=== PATIENT | male | born 1960 | race Caucasian/White ===

== ENCOUNTER 2017-01-19 17:36 | Inpatient (IN) | payer BC, OTHER ==
[~2017-01-19] VITALS: Ht 180.3 cm; Wt 78.5 kg
[2017-01-19] MEDS ORDERED: SODIUM CHLORIDE 0.9% 1000ML 1,000 ML IV STA ×2 (17:47→18:31)
[2017-01-19] MEDS ORDERED: ADENOSINE IV SOLN 3 MG/ML 2 ML VIAL ONE (17:48)
[2017-01-19] MEDS ORDERED: RAPID SEQUENCE INDUCTION BAG ONE (18:02)
--- NOTE | 2017-01-19 18:02 | EMERGENCY ROOM VISIT NOTE ---
History Report prepared by Malinda: Tonie Lancaster Under the Supervision of: Dr. Nishant Estvees D.O. First contact with patient: 17:47 Chief Complaint: CHEST PAIN Stated Complaint: CHEST PAIN History of Present Illness The patient is a 56 year old male who presents to the Emergency Room with complaints of constant shoulder pain and pressure beginning 45 minutes ago. The patient states that his pain started when he got out of the shower today. He reports that he feels well other than his shoulder pain and denies any nausea and chest pain. The patient also denies any recent illness, diarrhea, and dehydration. He reports a history of chewing tobacco and melanoma. The patients reports that he had a significant amount of alcohol last night. Source of History: patient Onset: 45 minutes ago Position: shoulder (bilateral) Quality: pressure Timing: constant Associated Symptoms: No chest pain, No nausea, No diarrhea Note: Pt denies recent illness. Review of Systems See HPI for pertinent positives & negatives. A total of 10 systems reviewed and were otherwise negative. Past Medical & Surgical Medical Problems: (1) Chest pain (2) Coronary atherosclerosis due to calcified coronary lesion (3) Elevated troponin (4) Lyme disease (5) Mitral valve disorder (6) Narrow complex tachycardia Family History No significant family history Social History Smoking Status: Never Smoker Drug Use: none Marital Status: Housing Status: lives with family Occupation Status: employed Current/Historical Medications No Active Prescriptions or Reported Meds Allergies Coded Allergies: No Known Allergies (Verified , 01/19/17) Physical Exam Vital Signs Date Time Temp Pulse Resp B/P (MAP) Pulse Ox O2 Delivery O2 Flow Rate FiO2 01/19/17 22:09 81 16 96 01/19/17 22:00 121/77 01/19/17 21:54 76 19 96 01/19/17 21:39 68 19 97 01/19/17 21:30 139/97 01/19/17 21:24 91 19 95 01/19/17 21:09 86 22 95 01/19/17 21:04 86 23 95 01/19/17 21:00 130/88 01/19/17 20:49 91 24 94 01/19/17 20:44 142/95 01/19/17 20:30 139/89 01/19/17 20:15 133/91 01/19/17 20:05 94 15/ 98 01/19/17 20:00 128/91 9/12/17 19:52 95 99 01/19/17 19:45 135/95 01/19/17 19:37 102 17 99 01/19/17 19:32 105 99 01/19/17 19:17 99 99 01/19/17 19:15 138/96 01/19/17 19:02 101 100 01/19/17 19:00 141/98 01/19/17 18:50 100 Nasal Cannula 3.0 01/19/17 18:47 100 100 01/19/17 18:46 101 100 Nasal Cannula 3.0 01/19/17 18:45 142/97 01/19/17 18:41 101 100 Nasal Cannula 3.0 01/19/17 18:40 136/91 01/19/17 18:36 105 99 Nasal Cannula 3.0 01/19/17 18:35 142/100 01/19/17 18:31 107 100 Nasal Cannula 3.0 01/19/17 18:30 156/96 01/19/17 18:26 110 99 Non-Rebreather 15.0 01/19/17 18:25 138/93 01/19/17 18:21 113 100 Non-Rebreather 15.0 01/19/17 18:20 146/100 01/19/17 18:16 122 88 Nasal Cannula 6.0 01/19/17 18:15 151/95 144/93 01/19/17 18:14 126/102 01/19/17 18:13 115 01/19/17 18:11 240 01/19/17 18:06 239 99 Nasal Cannula 6.0 01/19/17 18:01 242 99 Nasal Cannula 6.0 01/19/17 17:56 240 100 Nasal Cannula 6.0 01/19/17 17:54 109/63 01/19/17 17:51 241 01/19/17 17:51 229 98 Nasal Cannula 6.0 01/19/17 17:49 103/81 01/19/17 17:40 100 Nasal Cannula 6.0 01/19/17 17:40 100 Nasal Cannula 6.0 01/19/17 17:38 36.5 243 16 102/55 97 Physical Exam GENERAL: Patient is awake, alert, and very anxious appearing EYES: The conjunctivae are clear. The pupils are round and reactive. EARS, NOSE, MOUTH AND THROAT: The nose is without any evidence of any deformity. Mucous membranes are moist tongue is midline NECK: The neck is nontender and supple. RESPIRATORY: Normal respiratory effort is noted there is no evidence of wheezing rhonchi or rales CARDIOVASCULAR: Tachycardic rate and regular rhythm noted there no murmurs GASTROINTESTINAL: The abdomen is soft. Bowel sounds are present in all quadrants. Abdomen is nontender MUSCULOSKELETAL/EXTREMITIES: There is no evidence of gross deformity full range of motion is noted in the hips and shoulders SKIN: There is no obvious evidence of any rash. There are no petechiae, pallor or cyanosis noted. Skin was cool and diaphoretic, no pedal edema noted NEUROLOGIC: Patient is awake alert and oriented x3 Medical Decision & Procedures ER Provider Diagnostic Interpretation: X-ray results as stated below per interpretation by me and the radiologist. CHEST ONE VIEW PORTABLE FINDINGS: Lung volumes are normal. Mild left basilar opacity is suggestive of atelectasis. No pneumothorax or pleural effusion is present. Cardiomediastinal silhouette is unremarkable. IMPRESSION: No acute cardiopulmonary findings. Electronically signed by: Warren Saldana M.D. 01/19/2017 7:01 PM Dictated Date/Time: 01/19/2017 6:55 PM Laboratory Results Test 01/19/17 18:35 01/19/17 19:33 01/19/17 20:40 Prothrombin Time 10.9 SECONDS (9.0-12.0) Prothromb Time International Ratio 1.0 (0.9-1.1) Activated Partial Thromboplast Time 23.5 SECONDS (21.0-31.0) Partial Thromboplastin Ratio 0.9 Thyroid Stimulating Hormone (TSH) 2.720 uIu/ml (0.300-4.500) Free Thyroxine 1.11 ng/dl (0.80-1.60) Chemistry Specimen Hemolysis Urine Color YELLOW Urine Appearance CLEAR (CLEAR) Urine pH 5.0 (4.5-7.5) Urine Specific [place] 1.014 (1.000-1.030) Urine Protein NEG (NEG) Urine Glucose (UA) NEG (NEG) Urine Ketones 1+ (NEG) Urine Occult Blood NEG (NEG) Urine Nitrite NEG (NEG) Urine Bilirubin NEG (NEG) Urine Urobilinogen NEG (NEG) Urine Leukocyte Esterase NEG (NEG) Laboratory results per my review. Medications Administered Medications (Trade) Dose Ordered Sig/Jaelyn Route Start Time Stop Time Status Last Admin Dose Admin Sodium Chloride 1,000 ml @ 999 mls/hr Q1H1M STAT IV 01/19/17 17:47 01/19/17 18:47 DC 01/19/17 17:47 999 MLS/HR Adenosine (Adenosine IV) 36 mg STK-MED ONCE .ROUTE 01/19/17 17:48 01/19/17 17:49 DC 01/19/17 17:53 36 MG Miscellaneous (Rapid Sequence Induction Bag) 1 ea STK-MED ONCE N/A 01/19/17 18:02 01/19/17 18:03 DC 01/19/17 18:08 1 EA Thiamine HCl (Vitamin B-1 Inj) 100 mg NOW STAT IV 01/19/17 18:03 01/19/17 18:04 DC 01/19/17 18:55 100 MG Sodium Chloride 1,000 ml @ 250 mls/hr Q4H STAT IV 01/19/17 18:31 01/19/17 22:30 DC 01/19/17 18:31 250 MLS/HR Procedure Indication: Wide-Complex Tachycardia Written consent was obtained after the risks and benefits were explained, including but not limited to pain, thermal burn, allergic reaction, aspiration, airway obstruction, laryngospasm, infection, hypotension, and cardiorespiratory arrest. At this time, the risks of the procedure are less than the risks of NOT performing the procedure. A time out was taken and the correct patient and procedure identified. The patient was on 100% via NRB and end tidal CO2 monitoring prior to the procedure. Suction, airway equipment, medications, respiratory equipment, ACLS cart, and appropriate personnel were prepared prior to the initiation of the procedure. Sedation was achieved utilizing Etomidate 20mg. The biphasic defibrillator was set to 100 joules of energy and synched. After confirmation of sedation and "all clear" safety check the synchronized shock was delivered. This resulted in successful conversion of the dysrhythmia back into sinus rhythm. See nursing notes for dosages and times. There were no complications and the patient recovered uneventfully from the procedure. ECG Indication: chest pain Rate (beats per minute): 243 Rhythm: other (wide complex tachycardia) Findings: ST depression (widespread) Comparison ECG Date: 02/18/14 Change: Changes are new compared to previous. EKG 2: Sinus tachycardia, 120, persistence of inferior and lateral ST depressions noted. Changes new compared to 02/18/14. ED Course 1746: The patient was evaluated in room A1. A complete history and physical examination were performed. 1746: NSS 1,000 ml @ 999 mls/hr IV. 1747: Adenosine 36mg IV. 1802: Thiamine HCl 100mg IV. 1803: I discussed the patient's case with Dr. Arnold of Cardiology. The patient will be evaluated for further management. 1830: NSS 1,000 ml @ 250 mls/hr IV. 2033: I discussed the patient's case with Dr. De of [facility] The patient will be evaluated for further management. 2041: Upon reevaluation, the patient is doing well. I discussed results and treatment plan with the patient. He verbalizes agreement and understanding. I spoke with Dr. De of the [facility] The patient will be evaluated for further management and care. Medical Decision Differential diagnosis: Etiologies such as premature contractions, electrolyte abnormality, cardiac dysrhythmia, thyroid dysfunction, pulmonary embolism, infection, gastrointestinal, as well as others were entertained. Nursing notes reviewed. Additional history is obtained from the patient's significant other. The patient is a 56-year-old male who presented to the emergency department for an evaluation of chest pain and palpitations. The patient had an acute onset of fast heart rate prior to arrival. He was found to be in a regular tachycardia which appeared to be wide complex. There were also significant ST segment depressions noted and was unsure if this is rate related ischemia. The patient was having significant symptoms of discomfort across his shoulders as well as a low blood pressure. Initially we attempted to give the patient chemical cardioversion with Adenosine in case this rhythm represented an SVT with aberrancy conduction. This did not work and the patient continued to have worsening symptoms and the decision was made to give the patient a cardioversion. I discussed the risks and benefits of the cardioversion as well as the sedation. The patient was sedated in the usual fashion and he was cardioverted using 100 joules and synchronized cardioversion. The patient converted to sinus tachycardia then sinus rhythm. His ST segment abnormality slowly improved. He did not have any further discomfort and his initial troponin came back mildly elevated. I discussed the patient's case with the on- call [facility] sheet metal shop supervisor as well as the on-call [facility] hospitalist. They've agreed to evaluate the patient in the emergency department for further management and disposition. His condition continued to improve. He was treated with IV fluids as well. He was also given IV thiamine because he does have a history of alcohol use. Medication Reconcilliation Current Medication List: was personally reviewed by me Blood Pressure Screening Patient's blood pressure: Normal blood pressure Blood pressure disposition: Did not require urgent referral Consults Time Called: 1799 Consulting Physician: Dr. Arnold - Cardiology Returned Call: 1803 I discussed the patient's case with Dr. Arnold of Cardiology. The patient will be evaluated for further management. Additional Consults: Time Called: 2029 Consulted Physician: Dr. De - [facility] Returned Call: 2033 Additional Comments: I discussed the patient's case with Dr. De of [facility] The patient will be evaluated for further management. Impression Primary Impression: Wide-complex tachycardia Additional Impressions: Chest pain Elevated troponin Critical Care I have personally spent greater than 60 minutes of critical care time in the direct management of this patient. This includes bedside care, interpretation of diagnostic studies, and testing, discussion with consultants, patient, and family members, and other required patient management activities. This 60 minutes is in excess of all separately billable procedures. Scribe Attestation The scribe's documentation has been prepared under my direction and personally reviewed by me in its entirety. I confirm that the note above accurately reflects all work, treatment, procedures, and medical decision making performed by me. Departure Information Dispostion Being Evaluated By Hospitalist Prescriptions No Active Prescriptions or Reported Meds Referrals Bertha Zurita, RaymundoR.N.P (PCP) Patient Instructions My [facility] Health Problem Qualifiers Additional Impressions: Chest pain Chest pain type: unspecified Qualified Codes: R07.9 - Chest pain, unspecified
[2017-01-19] MEDS ORDERED: THIAMINE HCL 100 MG/ML 2 ML VIAL IV STA (18:03)
--- NOTE | 2017-01-19 19:02 | DIAGNOSTIC IMAGING REPORT ---
CHEST ONE VIEW PORTABLE CLINICAL HISTORY: Respiratory distress. Dyspnea. COMPARISON STUDY: Chest radiograph February 10, 2016. FINDINGS: Lung volumes are normal. Mild left basilar opacity is suggestive of atelectasis. No pneumothorax or pleural effusion is present. Cardiomediastinal silhouette is unremarkable. IMPRESSION: No acute cardiopulmonary findings. Electronically signed by: Warren Saldana M.D. 01/19/2017 7:01 PM Dictated Date/Time: 01/19/2017 6:55 PM
[2017-01-19 19:24] LABS: PARTIAL THROMBOPLASTIN RATIO 0.9; PROTHROMBIN TIME (PATIENT) 10.9 SECONDS (9.0-12.0)
[2017-01-19 19:46] LABS: BASO % 0.1 %; BASO ABS # 0.01 K/uL (0-0.2); COMPLETE YES; EOS % 0.6 %; HEMATOCRIT 44.2 % (42-52); IG% 0.3 %; LYMPH % 12.1 %; LYMPH ABS # 0.96 K/uL (1.2-3.4); MEAN CELL VOLUME 89.7 fL (80-100); MEAN CORPUSCULAR HGB CONC 35.7 g/dl (32-36); MEAN PLATELET VOLUME 9.7 fL (7.4-10.4); MONO % 7.3 %; NEUT % 79.6 %; PLATELET COUNT 220 K/uL (130-400); RED BLOOD COUNT 4.93 M/uL (4.7-6.1); WHITE BLOOD COUNT 7.93 K/uL (4.8-10.8)
[2017-01-19 20:14] LABS: BUN/CREATININE RATIO 12.5 (10-20); CALCIUM 9.3 mg/dl (8.5-10.1); CREATININE 1.2 mg/dl (0.60-1.40); MAGNESIUM 2.1 mg/dl (1.8-2.4)
[2017-01-19 20:34] LABS: ALB/GLOB RATIO 1.2 (0.9-2); THYROID STIMULATING HORMONE 2.72 uIu/ml (0.300-4.500)
[2017-01-19 20:58] LABS: URINE APPEARANCE CLEAR (CLEAR); URINE BILIRUBIN NEG (NEG); URINE COLOR YELLOW; URINE NITRITE NEG (NEG); URINE SPECIFIC GRAVITY 1.014 (1.000-1.030); UROBILINOGEN NEG (NEG)
[2017-01-19 21:03] LABS: MANUAL MICROSCOPIC REQUIRED? NO; REVIEW REQ? NO
--- NOTE | 2017-01-19 21:29 | History and Physical ---
History & Physical Date & Time of Service: Jan 19, 2017 at 21:20 Chief Complaint: Chest Pain Primary Care Physician: Bertha Zurita C.R.N.P History of Present Illness Source: patient, hospital records Mr Lewis is a 56 year old male who presented to the Emergency Room with complaints of presyncope, palpitations and neck/thorat/shoulder pain. The started while brushing his teeth after coming out of the shower. He has not experienced anything similar previously. Started of feeling light headed and dizzy, then started palpitations and throat was painful. This pain spread to his left shoulder first and then right shoulder and became increasingly painful up to 8-9/10 on arrival in the ER. Associated shortness of breath at rest. He denies any associated nausea or diaphoresis. The previous night he drank approximately 20 cans of beer as per his . In the ER he recevied 1L NSS bolus, then 1L NSS 250 MLS/HR, thiamine 100 mg IV. He was given 36mg IV adenosine which did not result in a rhythm change. He was then sedated and cardioverted with x1 shock 100J back into sinus rhythm. He currently denies any chest pain, shortness of breath, throat pain, shoulder pain , dizziness or palpitations. He denies any usual chest pain, orthopnea, PND, palpitations, claudication, syncope or presyncope outside of this episode. He takes snuff but never smokes. He had a stress echo in 2007 that showed no inducible ischemia. He does not take any regular medications and does not have routine medical care. Past Medical/Surgical History Medical Problems: No routine medical care Hx of mitral valve prolapse - although appears clear on stress echo in 2007 Past Surgery History: excision melanoma on back neck Family History No significant family history Social History Smoking Status: Never Smoker Smokeless Tobacco Use: Yes Alcohol Use: heavy (8-10 chet cans a few times/week) Drug Use: none Marital Status: Housing status: lives with family Occupational Status: retired Immunizations History of Influenza Vaccine: No History of Tetanus Vaccine?: Yes History of Pneumococcal: Yes Pneumococcal Date: Aug 14, 2007 History of Hepatitis B Vaccine: No Multi-Drug Resistant Organisms History of MDRO: No Allergies Coded Allergies: No Known Allergies (Verified , 01/19/17) Home Medications No Active Prescriptions or Reported Meds Review of Systems Constitutional: No fever, No chills Eyes: No worsening of vision ENT: No hearing loss Respiratory: No cough, No sputum, No wheezing, No shortness of breath, No dyspnea on exertion Cardiovascular: No chest pain, No orthopnea, No PND, No edema, No claudication , No palpitations Abdomen: No pain, No nausea, No vomiting, No diarrhea, No constipation, No GI bleeding Musculoskeletal: No joint pain, No muscle pain, No swelling, No calf pain Genitourinary - Male: No hematuria, No dysuria, No urinary frequency, No urinary urgency Neurologic: No memory loss, No weakness, No numbness/tingling, No vertigo, No balance problems Psychiatric: No depression symptoms Endocrine: No fatigue, No excessive thirst, No excessive urination Hematologic / Lymphatic: No abnormal bleeding/bruising, No clotting problems Integumentary: No rash, No itch Physical Exam Vital Signs Date Time Temp Pulse Resp B/P (MAP) Pulse Ox O2 Delivery O2 Flow Rate FiO2 01/19/17 21:04 86 23 95 01/19/17 21:00 130/88 01/19/17 20:49 91 24 94 01/19/17 20:44 142/95 01/19/17 20:30 139/89 01/19/17 20:15 133/91 01/19/17 20:05 94 15/ 98 01/19/17 20:00 128/91 01/19/17 19:52 95 99 01/19/17 19:45 135/95 01/19/17 19:37 102 17 99 01/19/17 19:32 105 99 01/19/17 19:17 99 99 01/19/17 19:15 138/96 01/19/17 19:02 101 100 01/19/17 19:00 141/98 01/19/17 18:50 100 Nasal Cannula 3.0 01/19/17 18:47 100 100 01/19/17 18:46 101 100 Nasal Cannula 3.0 01/19/17 18:45 142/97 01/19/17 18:41 101 100 Nasal Cannula 3.0 01/19/17 18:40 136/91 01/19/17 18:36 105 99 Nasal Cannula 3.0 01/19/17 18:35 142/100 01/19/17 18:31 107 100 Nasal Cannula 3.0 01/19/17 18:30 156/96 01/19/17 18:26 110 99 Non-Rebreather 15.0 01/19/17 18:25 138/93 01/19/17 18:21 113 100 Non-Rebreather 15.0 01/19/17 18:20 146/100 01/19/17 18:16 122 88 Nasal Cannula 6.0 01/19/17 18:15 151/95 144/93 01/19/17 18:14 126/102 01/19/17 18:13 115 01/19/17 18:11 240 01/19/17 18:06 239 99 Nasal Cannula 6.0 01/19/17 18:01 242 99 Nasal Cannula 6.0 01/19/17 17:56 240 100 Nasal Cannula 6.0 01/19/17 17:54 109/63 01/19/17 17:51 241 01/19/17 17:51 229 98 Nasal Cannula 6.0 01/19/17 17:49 103/81 01/19/17 17:40 100 Nasal Cannula 6.0 01/19/17 17:40 100 Nasal Cannula 6.0 01/19/17 17:38 36.5 243 16 102/55 97 General Appearance: WD/WN, no apparent distress Head: normocephalic, atraumatic Eyes: normal inspection, PERRL, EOMI ENT: normal ENT inspection Neck: supple, no JVD, trachea midline Respiratory/Chest: chest non-tender, lungs clear, normal breath sounds, no respiratory distress, no accessory muscle use Cardiovascular: regular rate, rhythm, no edema, no murmur, normal peripheral pulses Abdomen/GI: normal bowel sounds, non tender, soft Back: no CVA tenderness Extremities/Musculoskelatal: no calf tenderness, normal capillary refill, no pedal edema Neurologic/Psych: lease administrator II-XII nml as tested, no motor/sensory deficits, alert, oriented x 3 Skin: normal color, warm/dry, no rash Diagnostics Laboratory Results Results Past 24 Hours Test 01/19/17 18:35 01/19/17 19:33 01/19/17 20:40 Range/Units Prothrombin Time 10.9 9.0-12.0 SECONDS Prothromb Time International Ratio 1.0 0.9-1.1 Activated Partial Thromboplast Time 23.5 21.0-31.0 SECONDS Partial Thromboplastin Ratio 0.9 White Blood Count 7.93 4.8-10.8 K/uL Red Blood Count 4.93 4.7-6.1 M/uL Hemoglobin 15.8 14.0-18.0 g/dL Hematocrit 44.2 42-52 % Mean Corpuscular Volume 89.7 80-100 fL Mean Corpuscular Hemoglobin 32.0 25-34 pg Mean Corpuscular Hemoglobin Concent 35.7 32-36 g/dl Platelet Count 220 130-400 K/uL Mean Platelet Volume 9.7 7.4-10.4 fL Neutrophils (%) (Auto) 79.6 % Lymphocytes (%) (Auto) 12.1 % Monocytes (%) (Auto) 7.3 % Eosinophils (%) (Auto) 0.6 % Basophils (%) (Auto) 0.1 % Neutrophils # (Auto) 6.31 1.4-6.5 K/uL Lymphocytes # (Auto) 0.96 1.2-3.4 K/uL Monocytes # (Auto) 0.58 0.11-0.59 K/uL Eosinophils # (Auto) 0.05 0-0.5 K/uL Basophils # (Auto) 0.01 0-0.2 K/uL RDW Standard Deviation 43.0 36.4-46.3 fL RDW Coefficient of Variation 13.2 11.5-14.5 % Immature Granulocyte % (Auto) 0.3 % Immature Granulocyte # (Auto) 0.02 0.00-0.02 K/uL Sodium Level 139 136-145 mmol/L Potassium Level 5.0 3.5-5.1 mmol/L Chloride Level 107 98-107 mmol/L Carbon Dioxide Level 26 21-32 mmol/L Anion Gap 6.0 3-11 mmol/L Blood Urea Nitrogen 15 7-18 mg/dl Creatinine 1.20 0.60-1.40 mg/dl Est Creatinine Clear Calc Drug Dose 73.8 ml/min Estimated GFR () 78.4 Estimated GFR (Non- 67.7 BUN/Creatinine Ratio 12.5 10-20 Random Glucose 64 70-99 mg/dl Calcium Level 9.3 8.5-10.1 mg/dl Magnesium Level 2.1 1.8-2.4 mg/dl Total Bilirubin 1.0 0.2-1 mg/dl Aspartate Amino Transf (AST/SGOT) 41 15-37 U/L Alanine Aminotransferase (ALT/SGPT) 39 12-78 U/L Alkaline Phosphatase 88 45-117 U/L Troponin I 0.169 0-0.045 ng/ml Total Protein 8.3 6.4-8.2 gm/dl Albumin 4.5 3.4-5.0 gm/dl Globulin 3.8 2.5-4.0 gm/dl Albumin/Globulin Ratio 1.2 0.9-2 Thyroid Stimulating Hormone (TSH) 2.720 0.300-4.500 uIu/ml Free Thyroxine 1.11 0.80-1.60 ng/dl Chemistry Specimen Hemolysis Urine Color YELLOW Urine Appearance CLEAR CLEAR Urine pH 5.0 4.5-7.5 Urine Specific [place] 1.014 1.000-1.030 Urine Protein NEG NEG Urine Glucose (UA) NEG NEG Urine Ketones 1+ NEG Urine Occult Blood NEG NEG Urine Nitrite NEG NEG Urine Bilirubin NEG NEG Urine Urobilinogen NEG NEG Urine Leukocyte Esterase NEG NEG Diagnostic Radiology CHEST ONE VIEW PORTABLE CLINICAL HISTORY: Respiratory distress. Dyspnea. COMPARISON STUDY: Chest radiograph February 10, 2016. FINDINGS: Lung volumes are normal. Mild left basilar opacity is suggestive of atelectasis. No pneumothorax or pleural effusion is present. Cardiomediastinal silhouette is unremarkable. IMPRESSION: No acute cardiopulmonary findings. Electronically signed by: Warren Saldana M.D. 01/19/2017 7:01 PM Dictated Date/Time: 01/19/2017 6:55 PM EKG EKG #1 17:44 01/19/2017 - narrow complex regular rhythm tachycardia rate 243 bpm - widespread ST depression in lateral and inferior leads EKG #2 01/19/2017 - normal sinus tachycardia iwth resolving ST depression in septal leads, rate 119 bpm Impression Assessment and Plan 56 year old male admission for narrow complex tachycardia which did not respond to adenosine. Now cardioverted with synchronized defibrillation. Narrow complex tachycardia - likely secondary to excessive alcohol consumption - no previous history of this. TSH normal. - echo for structural heart deficit - NPO after midnight pending cardiology consult - consult cardiology routine Elevated troponin - rate was 243 bpm therefore suspect some supply demand mismatch - hold off aspirin, heparin at this stage unless develops further symptoms - trend overnight -> likely to increase s/p defibrillation - EKG if chest/shoulder pain + repeat EKG in morning to assess for dynamic ST depression - nitro if chest/shoulder pain, then morphine if that doesn't help - fasting lipids in morning - echo as above - consult cardiology routine Alcohol use disorder - excessive alcohol consumption leading up to event - monitor for signs of withdrawal using AWSS score - lorazepam 1mg PO PRN AWSS protocol Mild hypoglycemia - likely secondary to alcohol intake - D5 + 0.5NSS 125 MLS/HR - repeat BSG at midnight and before meals Code - Full VTE Prophylaxis - heparin 5000 units Q8H - SCDs and TEDs Disposition - admit to telemetry for monitoring of arrhythmia Resident Physician Supervision Note: I was present with Dr. De during the history and exam. I discussed the case with the resident and agree with the findings and plan as documented in the note. Any exceptions or clarifications are listed here: 56 y/o M without reg med f/u - Hx ETOH abuse - developed palpitations and chest discomfort - rhythm on arrival to ER likely SVT at rate of 245 - pt was shocked into normal rhythm and is asymptomatic following OE AAO x 3 S1,2 R CTAB NT, ND, BS + No CCE P: Monitor on telemetry - cardio consult - started on Bblocker Treat for expected ETOH withdrawal Above discussed with pt and ER attending Documented By: Edmundo De Level of Care Telemetry VTE Prophylaxis VTE Risk Assessment Done? Y/N: Yes Risk Level: Moderate Given or contraindicated: Unfractionated heparin SQ, T.E.D. Stockings, SCD's Resident Tracking Resident Involvement: Resident Care Provided Care Provided: Adult Hospital Medicine
[2017-01-19] MEDS ORDERED: MoRPHine SULFATE 2 MG/ML CARP IV PRN (22:00)
[2017-01-19] MEDS ORDERED: NITROGLYCERIN 0.4 MG SL PER TAB CHARGE SL PRN (22:00)
[2017-01-19] MEDS ORDERED: ACETAMINOPHEN 325 MG TAB PO PRN (22:00)
[2017-01-19] MEDS ORDERED: ONDANSETRON INJ 2 MG/ML 2 ML VIAL IV PRN (22:00)
[2017-01-19] MEDS ORDERED: LORAZEPAM 1 MG TAB PO PRN (22:30)
[2017-01-19 23:00] VITALS: BP 147/89; PULSE 90; TEMP 36.8; O2SAT 97; Ht 180.3 cm; Wt 78.5 kg
[2017-01-19] MEDS: D5W AND 1/2NSS 1,000 ML IV SCH (23:36)
[2017-01-20] MEDS ORDERED: METOPROLOL TARTRATE 25 MG TAB PO ONE (01:15)
[2017-01-20 03:55] VITALS: BP 92/57; PULSE 59; TEMP 36.8; O2SAT 97
[2017-01-20] MEDS: D5W AND 1/2NSS 1,000 ML IV SCH ×2 (05:21→13:05)
[2017-01-20] MEDS: HEPARIN SOD 5000 UNIT/0.5 ML CARP SQ SCH ×2 (05:21→12:24)
[2017-01-20 06:17] LABS: BASO % 0.4 %; BASO ABS # 0.02 K/uL (0-0.2); COMPLETE YES; HEMATOCRIT 38.9 % (42-52); IG% 0.2 %; LYMPH % 28.3 %; LYMPH ABS # 1.27 K/uL (1.2-3.4); MEAN CELL VOLUME 90.3 fL (80-100); MEAN CORPUSCULAR HEMOGLOBIN 31.6 pg (25-34); MEAN PLATELET VOLUME 9.8 fL (7.4-10.4); MONO % 12.5 %; NEUT % 56.6 %; PLATELET COUNT 202 K/uL (130-400); RED BLOOD COUNT 4.31 M/uL (4.7-6.1); WHITE BLOOD COUNT 4.49 K/uL (4.8-10.8)
[2017-01-20 07:00] LABS: ALB/GLOB RATIO 1.1 (0.9-2); BUN/CREATININE RATIO 19.4 (10-20); CHOLESTEROL/HDL RATIO 2.7; MAGNESIUM 2.4 mg/dl (1.8-2.4); POTASSIUM 3.8 mmol/L (3.5-5.1)
[2017-01-20 07:21] VITALS: BP 112/66; PULSE 55; TEMP 36.5; O2SAT 96
[2017-01-20] MEDS ORDERED: THIAMINE HCL 100 MG TAB PO SCH (09:00)
[2017-01-20] MEDS ORDERED: METOPROLOL TARTRATE 25 MG TAB PO SCH (09:00)
--- NOTE | 2017-01-20 09:20 | ECHOCARDIOGRAM REPORT ---
*NOTICE TO RECEIVING [employer] [employer] [facility] This information is strictly Confidential and protected under [place] law. [place] law prohibits you from making any further disclosure of this information unless further disclosure is expressly permitted by the written consent of the person to whom it pertains or is authorized by law. A general authorization for the release of medical or other information is not sufficient for this purpose. Hospital accepts no responsibility if the information is made available to any other person, INCLUDING THE PATIENT. Interpretation Summary * Name: LUANNE LIN Study Date: 01/20/2017 06:33 AM BP: 112/66 mmHg * Patient Location: C.2E\S\E203\S\1 HR: 67 * : 1960 (M/d/yyyy) Gender: Male Height: 71 in * Age: 56 yrs Ethnicity: CA Weight: 165 lb * Ordering Physician: Vinay Gerardo * Referring Physician: Self, Referred * Performed By: Valeria Nguyen RCS * * Reason For Study: SVT / ELEVATED TROPONIN * BSA: 1.9 m2 * -- Conclusions -- * Left ventricular systolic function is mildly reduced. * There are regional wall motion abnormalities as specified. * The right ventricle is moderately dilated. * The right ventricular systolic function is borderline reduced. * The right atrium is moderately dilated. * Mild to moderate aortic regurgitation. * There is mild to moderate mitral regurgitation. Procedure Details * A complete two-dimensional transthoracic echocardiogram was performed (2D, M-mode, Doppler and color flow Doppler). Left Ventricle * The left ventricle is normal in size. * There is normal left ventricular wall thickness. * Left ventricular systolic function is mildly reduced. * Ejection Fraction = 45-50%. * There are regional wall motion abnormalities as specified. * Anterior and lateral apex is moderately hypokinetic Right Ventricle * The right ventricle is moderately dilated. * The right ventricular systolic function is borderline reduced. Atria * The left atrial size is normal. * The right atrium is moderately dilated. Mitral Valve * The mitral valve anatomy is normal. * There is mild to moderate mitral regurgitation. Tricuspid Valve * The tricuspid valve is not well visualized. * Significant tricuspid regurgitation is absent. Aortic Valve * The aortic valve is normal in structure and function. * No hemodynamically significant valvular aortic stenosis. * Mild to moderate aortic regurgitation. Great Vessels * The aortic root is normal size. Pericardium/Pleural * There is no pericardial effusion. MMode 2D Measurements and Calculations IVSd 1.2 cm IVSs 1.5 cm LVIDd 5.2 cm LVIDs 4.2 cm LVPWd 1.1 cm LVPWs 1.5 cm IVS/LVPW 1.1 FS 19.8 % EDV(Teich) 131.8 ml ESV(Teich) 78.7 ml EF(Teich) 40.3 % EDV(cubed) 143.8 ml ESV(cubed) 74.3 ml EF(cubed) 48.4 % % IVS thick 20.4 % % LVPW thick 29.8 % LV mass(C)d 247.6 grams LV mass(C)dI 127.4 grams/m\S\2 LV mass(C)s 244.7 grams LV mass(C)sI 125.9 grams/m\S\2 SV(Teich) 53.1 ml SI(Teich) 27.3 ml/m\S\2 SV(cubed) 69.6 ml SI(cubed) 35.8 ml/m\S\2 Ao root diam 3.4 cm Ao root area 9.2 cm\S\2 ACS 2.3 cm LA dimension 3.6 cm LA/Ao 1.1 LVOT diam 2.0 cm LVOT area 3.2 cm\S\2 Doppler Measurements and Calculations MV E max [place] 47.5 cm/sec MV A max [place] 38.8 cm/sec MV E/A 1.2 MV P1/2t max [place] 63.8 cm/sec MV P1/2t 49.5 msec MVA(P1/2t) 4.4 cm\S\2 MV dec slope 377.9 cm/sec\S\2 MV dec time 0.21 sec Ao V2 max 104.0 cm/sec Ao max PG 4.3 mmHg Ao max PG (full) 2.0 mmHg NILSON(V,A) 2.4 cm\S\2 NILSON(V,D) 2.4 cm\S\2 AI max [place] 419.9 cm/sec AI max PG 70.5 mmHg AI dec slope 132.7 cm/sec\S\2 AI P1/2t 926.9 msec LV V1 max PG 2.3 mmHg LV V1 max 76.0 cm/sec MR max [place] 475.4 cm/sec MR max PG 91.7 mmHg PA V2 max 63.8 cm/sec PA max PG 1.6 mmHg PI max [place] 144.9 cm/sec PI max PG 8.4 mmHg PI dec slope 113.8 cm/sec\S\2 PI P1/2t 373.1 msec TR max [place] 265.8 cm/sec
[2017-01-20 10:35] VITALS: BP 107/76; PULSE 60; TEMP 37.1; O2SAT 96
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
--- NOTE | 2017-01-20 13:16 | Discharge Instructions ---
Discharge Instructions Date of Service Jan 20, 2017. Admission Reason for Admission: Elevated Troponin, Narrow Complex Tachycardia Discharge Discharge Diagnosis / Problem: Narrow complex tachycardia Discharge Goals Goal(s): Decrease discomfort, Diagnostic testing, Therapeutic intervention Activity Recommendations Activity Limitations: resume your previous activity (as tolerated) . Instructions / Follow-Up Instructions / Follow-Up You were admitted to the hospital with complains of palpitations, dizziness, and neck/shoulder pain. Upon arrival to the ER you were found to have an elevated heart rate up in the 240s. Your EKG revealed a narrow complex tachycardia. You were initially treated with adenosine with no affect. You were then converted back to sinus rhythm with synchronous defibrillation. You were evaluated by cardiology and are now medically stable for discharge. You will be scheduled for a follow up appointment with cardiology. Medications: *No changes have been made to your medications as this time. Follow up: *You will be scheduled to follow up with cardiology in 1-2 weeks. Please go over the information regarding ablation prior to your follow up appointment as this is the recommended treatment. *You will also be scheduled to follow up with your primary care provider regarding your hospital stay. Please seek medical attention if you experience fevers, chills, sweats, dizziness/lightheadedness, loss of consciousness, fall, chest/neck/shoulder pain , palpitations, shortness of breath, nausea, vomiting, numbness or tingling. If your symptoms from last night return, please immediately go to the emergency room as your arrhythmia may have returned. Current Hospital Diet Patient's current hospital diet: Regular Diet Discharge Diet Recommended Diet: Regular Diet Procedures Procedures Performed: Echocardiogram Pending Studies Studies pending at discharge: no Laboratory Results Lipid Panel Test 01/20/17 05:20 Range/Units Triglycerides Level 99 0-150 mg/dl Cholesterol Level 127 0-200 mg/dl HDL Cholesterol 47 mg/dl Cholesterol/HDL Ratio 2.7 LDL Cholesterol, Calculated 60 mg/dl Medical Emergencies . Who to Call and When: Medical Emergencies: If at any time you feel your situation is an emergency, please call 911 immediately. . Non-Emergent Contact Non-Emergency issues call your: Primary Care Provider, Grinder Operator Call Non-Emergent contact if: you have a fever, your pain is not controlled, your pain is worsening, your pain is unusual for you, your pain is concerning you, you have any medication questions . Past History Medical & Surgical History: (1) Narrow complex tachycardia (2) Elevated troponin . "Provider Documentation" section prepared by Aleja Mendoza. . VTE Core Measure Inpt VTE Proph given/why not?: Unfractionated heparin SQ, T.E.D. Stockings, SCD 's
--- NOTE | 2017-01-20 13:31 | Discharge Summary ---
Discharge Summary Date of Service Jan 20, 2017. (Aleja Sutton, ABHISHEK) Discharge Summary Admission Date: Jan 19, 2017 at 22:09 Discharge Date: Jan 20, 2017 Discharge Disposition: Home Principal Diagnosis: Narrow complex tachycardia Problems/Secondary Diagnoses: Elevated troponin Cardiomyopathy of unknown etiology Immunizations: Have You Had Influenza Vaccine: No History of Tetanus Vaccine?: Yes History of Pneumococcal: Yes Pneumococcal Date: Aug 14, 2007 History of Hepatitis B Vaccine: No Procedures: Echocardiogram: Interpretation Summary * Name: LUANNE LIN Study Date: 01/20/2017 06:33 AM BP: 112/66 mmHg * Patient Location: C.2E\S\E203\S\1 HR: 67 * : 1960 (M/d/yyyy) Gender: Male Height: 71 in * Age: 56 yrs Ethnicity: CA Weight: 165 lb * Ordering Physician: Vinay Gerardo * Referring Physician: Self, Referred * Performed By: Valeria Nguyen RCS * * Reason For Study: SVT / ELEVATED TROPONIN * BSA: 1.9 m2 * -- Conclusions -- * Left ventricular systolic function is mildly reduced. * There are regional wall motion abnormalities as specified. * The right ventricle is moderately dilated. * The right ventricular systolic function is borderline reduced. * The right atrium is moderately dilated. * Mild to moderate aortic regurgitation. * There is mild to moderate mitral regurgitation. Procedure Details * A complete two-dimensional transthoracic echocardiogram was performed (2D, M-mode, Doppler and color flow Doppler). Left Ventricle * The left ventricle is normal in size. * There is normal left ventricular wall thickness. * Left ventricular systolic function is mildly reduced. * Ejection Fraction = 45-50%. * There are regional wall motion abnormalities as specified. * Anterior and lateral apex is moderately hypokinetic Right Ventricle * The right ventricle is moderately dilated. * The right ventricular systolic function is borderline reduced. Atria * The left atrial size is normal. * The right atrium is moderately dilated. Mitral Valve * The mitral valve anatomy is normal. * There is mild to moderate mitral regurgitation. Tricuspid Valve * The tricuspid valve is not well visualized. * Significant tricuspid regurgitation is absent. Aortic Valve * The aortic valve is normal in structure and function. * No hemodynamically significant valvular aortic stenosis. * Mild to moderate aortic regurgitation. Great Vessels * The aortic root is normal size. Pericardium/Pleural * There is no pericardial effusion. Consultations: Cardiology--Dr. Arnold (Aleja Sutton, ABHISHEK) Medication Reconciliation Medication Profile: No Active Prescriptions or Reported Meds Discharge Exam Patient reports feeling well. He states that his previous neck and shoulder pain has resolved. He denied feeling any chest pain at all. He denies dizziness, lightheadedness and palpitations. He states that since being defibrillated, he has been feeling great and feels ready to go home. The patient denies fevers, chills, sweats, chest pain, palpitations, claudication, cough, wheezing, shortness of breath, nausea, vomiting, abdominal pain, dysuria , hematuria, urinary retention, paralysis, weakness, numbness and tingling. Review of Systems: Constitutional: No fever, No chills, No sweats Eyes: No worsening of vision, No eye pain, No diplopia ENT: No hearing loss, No sore throat, No trouble swallowing Respiratory: No cough, No wheezing, No shortness of breath Cardiovascular: No chest pain, No claudication, No palpitations Abdomen: No pain, No nausea, No vomiting Musculoskeletal: No joint pain, No muscle pain, No calf pain Genitourinary - Male: No hematuria, No dysuria, No urinary retention Neurologic: No paralysis, No weakness, No numbness/tingling Integumentary: No rash, No itch, No color change Physical Exam: General Appearance: WD/WN, no apparent distress Eyes: normal inspection, PERRL, EOMI ENT: normal ENT inspection, hearing grossly normal, pharynx normal Neck: supple, no JVD, trachea midline Respiratory/Chest: lungs clear, normal breath sounds, no accessory muscle use Cardiovascular: no gallop, no murmur, + bradycardia (regular rhythm) Abdomen / GI: normal bowel sounds, non tender, soft Extremities: normal inspection, no calf tenderness, no pedal edema Neurologic/Psychiatric: alert, normal mood/affect, oriented x 3 Skin: normal color, warm/dry, no rash (Aleja Sutton ., TREC) Hospital Course 56 y/o male with a history of cardiomyopathy who presents to the ED on 01/19 with dizziness, palpitations, and neck/shoulder pain. Patient arrived with heart rate in the 240s. He was found to have a narrow complex tachycardia. Pt given adenosine with no response. He was then cardioverted with synchronized defibrillation and is feeling well. The patient did have excessive alcohol intake prior to arrival with about 20 12oz cans of beer throughout the day per his . He typically drinks about 8-10 beers a night twice a week. Narrow complex tachycardia, h/o cardiomyopathy--stable -Admit to telemetry. No acute events overnight. Pt in sinus bradycardia with HR in 40s-50s -Echocardiogram shows LVEF of 45-50%. Anterior and lateral apex moderate hypokinesis. -TSH WNL -S/p defibrillation, pt back to his baseline bradycardia -Cardiology consulted, appreciate recs: spoke with Dr. Arnold. Pt is not a candidate for medical therapy due to his low-normal blood pressure and resting bradycardia. Recommend ablation as atrial flutter is suspected given right atrial enlargement. No cardiac cath needed at this time. Elevated troponin likely demand ischemia. F/u in 1-2 weeks outpt and hopefully schedule ablation at that time. Stable for d/c. -Ablation recommended. Pt wants to try medical therapy first if possible, but this is contraindicated for him due to BP and HR. Given info pamphlets by cardio and will think about this more and discuss with family -Instructed to return to ER if symptoms return Elevated troponin--stable -Troponin peaked at 1.53, now trending down. Likely demand ischemia given tachycardia as above -Repeat EKG 01/20 shows 42 bpm, sinus bradycardia. Previous ST depression in inferior/lateral leads now resolved -Lipid panel WNL Alcohol abuse -No s/s withdrawal -Encourage cutting back alcohol use/cessation Mild hypoglycemia--resolved -Likely secondary to alcohol intake -D5+ 1/2NSS at 125 cc/hr -BSGs now WNL DVT prophylaxis -Heparin 5000 units SC q8h -NAM brown and SCDs Code Status -Level I, FULL RESUSCITATION STATUS Total Time Spent: Greater than 30 minutes This includes examination of the patient, discharge planning, medication reconciliation, and communication with other providers. (Aleja Sutton ., PA-C) Discharge Instructions Please refer to the electronic Patient Visit Report (Discharge Instructions) for additional information. (Aleja Sutton ., PA-C) Follow-Up F/u with Dr. Arnold 1-2 weeks, possible ablation F/u PCP in 1 week (Aleja Sutton ., ABHISHEK) Additional Copies To Bertha Zurita C.R.N.P Reviewed: Pt Seen/Exam by Me (Rosa Maria Lo MD) History Physician [employer] Specialist Supervision Note: I interviewed and examined the patient. Discussed with BREANNE Sutton and agree with findings and plan as documented in the note. Any exceptions or clarifications are listed here: Pt doing very well. Has no CP or SOB. No more recurrence of SVT here. Discussed case with Cardiology and stable for discharge. He reports he will be quitting his EtOH binge drinking/abuse at his 's encouragement. Vitals reviewed Physical Exam: General Appearance: WD/WN, no apparent distress Eyes: normal inspection, PERRL, EOMI ENT: normal ENT inspection, hearing grossly normal, pharynx normal Neck: supple, no JVD, trachea midline Respiratory/Chest: lungs clear, normal breath sounds, no accessory muscle use Cardiovascular: no gallop, no murmur, + bradycardia (regular rhythm) Abdomen / GI: normal bowel sounds, non tender, soft Extremities: normal inspection, no calf tenderness, no pedal edema Neurologic/Psychiatric: alert, normal mood/affect, oriented x 3 Skin: normal color, warm/dry, no rash 56 yo male with SVT requiring cardioversion in ER, elevated troponin due to cardioversion and/or demand ischemia from SVT with rate in the 240s. -highly recommend f/u with EP for possible ablation -has biventricular chronic systolic CHF of unknown etiology, stable for years as per review of old records by Cardio--> no signs of hypervolemia, discussed performing daily weights, eating a low Na+ diet -f/u with PCP and Cardiology Documented By: Rosa Maria Lo (Rosa Maria Lo MD)
[2017-01-20 15:00] VITALS: BP 107/76; PULSE 60; TEMP 37.1; O2SAT 96
[2017-01-20] MEDS ORDERED: ETOMIDATE 2 MG/ML 20 ML VIAL IV ONE (15:33)
== END 2017-01-20 15:34 | disposition home or self-care (01) | DRG 309 ==
LOC: C.EDB 17:43 → C.2E 22:09 → ENRESERV 22:15
PROVIDERS: ADMIT Internal Medicine; ATTEND Family Medicine
DX: I47.1 Supraventricular tachycardia (principal); I42.9 Cardiomyopathy, unspecified; I50.22 Chronic systolic (congestive) heart failure; I38 Endocarditis, valve unspecified; R79.89 Other specified abnormal findings of blood chemistry; F10.10 Alcohol abuse, uncomplicated; E16.2 Hypoglycemia, unspecified; I25.119 Atherosclerotic heart disease of native coronary artery with unspecified angina pectoris; I25.84 Coronary atherosclerosis due to calcified coronary lesion; M25.519 Pain in unspecified shoulder

== ENCOUNTER 2017-03-19 06:09 | Emergency (ER) | payer OTHER ==
[~2017-03-19] VITALS: Ht 177.8 cm; Wt 76.9 kg
[2017-03-19 06:14] VITALS: TEMP 36.4; Ht 177.8 cm; Wt 76.9 kg
--- NOTE | 2017-03-19 07:06 | EMERGENCY ROOM VISIT NOTE ---
History Report prepared by Malinda: Mnóica Kim Under the Supervision of: Dr. Zachary Sunshine M.D. First contact with patient: 06:32 Chief Complaint: ALCOHOL OVERDOSE Stated Complaint: ALCOHOL OVERDOSE History of Present Illness The patient is a 56 year old male who presents to the Emergency Room with complaints of an alcohol overdose that occurred prior to arrival. Per the patient's , she found the patient downstairs in the basement, on the floor, and was unable to wake the patient. She notes that she found 16 open beers around the house. The patient denies any fall or loss of consciousness. He states that he laid down to go to sleep in the basement because it was warm. The patient states that he is unsure why his was unable to wake him. He states that he was only drinking beer, denying any liquor and drug use. The patient states that he drank approximately 12 beers last night. He states that he had a recent cold, noting that he was taking Sudafed for a week. The patient 's states that in January the patient went into SVT and had his heart shocked. Source of History: patient, spouse/significant other () Onset: prior to arrival Position: other (global) Quality: other (alochol overdose) Associated Symptoms: No LOC Review of Systems All systems have been listed, reviewed, and are negative other than those previously mentioned. Please see Additional Medical History Sheet. Past Medical & Surgical Medical Problems: (1) Chest pain (2) Coronary atherosclerosis due to calcified coronary lesion (3) Elevated troponin (4) Lyme disease (5) Melanoma (6) Mitral valve disorder (7) Narrow complex tachycardia (8) SVT (supraventricular tachycardia) Family History No significant family history Social History Smoking Status: Never Smoker Alcohol Use: heavy Drug Use: none Marital Status: Housing Status: lives with family Occupation Status: retired Current/Historical Medications No Active Prescriptions or Reported Meds Allergies Coded Allergies: No Known Allergies (Verified , 01/19/17) Physical Exam Vital Signs Date Time Temp Pulse Resp B/P (MAP) Pulse Ox O2 Delivery O2 Flow Rate FiO2 03/19/17 07:33 60 16 109/73 95 03/19/17 06:14 36.4 71 16 121/88 97 Room Air Physical Exam GENERAL: Patient awake, alert, conversing, alcohol noted on breath, patient is oriented x3. SKIN: No erythema, pallor, cyanosis or rash HEENT: No londono sign, raccoon sign, normocephalic, no lumps, bumps, or bruises. Normal head, pupils equal, reactive to light and accommodation. Oral cavity and posterior pharynx appear normal. Neck: Without adenopathy, no neck vein distention, supple nontender. LUNGS: Clear to auscultation. No wheezes, no rales, no rhonchi. HEART: No murmurs. No gallops. No rubs ABDOMEN: No masses, no rebound, no hepatomegaly or splenomegaly. PELVIS: Negative to pelvic rock. EXTREMITIES: Extremities are nontender. NEUROLOGIC: Cranial nerves II-XII within normal limits. No gross motor sensory function deficits. Medical Decision & Procedures ECG Indication: toxicologic, other (history of SVT) Rate (beats per minute): 69 Rhythm: normal sinus Findings: no acute ischemic change, no ectopy ED Course 0633: Past medical records reviewed. The patient was evaluated in room A9B. A complete history and physical examination was performed. 0718: I reevaluated the patient and he is resting comfortably. I discussed the exam findings with him and I discussed the treatment plan. He verbalized complete understanding and agreement. He is ready to go home. Medical Decision Nurses notes reviewed. Medical history sheet reviewed. Differential diagnosis includes but is not limited to: Alcohol intoxication, fall, closed head injury, neck injury, multiple trauma. The patient was found asleep by his at the bottom of the stairs. The patient admits to drinking approximately 12 beers. The patient adamantly denies that he fell. He states that he fell asleep. The patient states he has chronic bone pain but no acute pain. Examination today reveals no signs of acute trauma. The patient has no evidence recent arrhythmia. The patient refuses all blood work. At this point there is no need to do imaging studies because he has no acute pain. I believe that it would be helpful to obtain blood work but he refuses. The patient was asked to sign out AMA. He understands the risks associated with not having these tests performed. The patient was able to ambulate in the ED without difficulty prior to discharge. was present during the entire evaluation. Medication Reconcilliation Current Medication List: was personally reviewed by me Impression Primary Impression: Alcoholic intoxication Scribe Attestation The scribe's documentation has been prepared under my direction and personally reviewed by me in its entirety. I confirm that the note above accurately reflects all work, treatment, procedures, and medical decision making performed by me. Departure Information Dispostion Home / Self-Care Prescriptions No Active Prescriptions or Reported Meds Referrals Bertha Zurita C.R.N.P (PCP) Forms HOME CARE DOCUMENTATION FORM, IMPORTANT VISIT INFORMATION Patient Instructions Alcohol Intoxication - [facility], My [facility] Additional Instructions Drink extra nonalcohol containing fluids today. Take Tylenol as needed for any hangover/headache symptoms. If you drink alcohol, drink only in moderation.
[2017-03-19 07:33] VITALS: BP 109/73; PULSE 60; O2SAT 95
== END 2017-03-19 07:35 | disposition left against medical advice (07) ==
LOC: EDBD 06:09 → C.EDA 06:10
DX: F10.129 Alcohol abuse with intoxication, unspecified (principal); I25.10 Atherosclerotic heart disease of native coronary artery without angina pectoris; Z53.21 Procedure and treatment not carried out due to patient leaving prior to being seen by health care provider; Z86.19 Personal history of other infectious and parasitic diseases